=== PATIENT | female | born 1960 | race Caucasian/White ===

== ENCOUNTER → 2016-06-04 | Outpatient (CLI) | payer BC ==
--- NOTE | 2016-06-05 10:11 | MM ---
Reason for exam: screening (asymptomatic). Last mammogram was performed 1 year ago. History: Patient is postmenopausal and had first child at age 29. Family history of breast cancer in maternal aunt at age 70. Benign right US cyst aspiration of the right breast, October 05, 2009. Benign excisional biopsy of the right breast, 2006. Physical Findings: A clinical breast exam by your physician is recommended on an annual basis and results should be correlated with mammographic findings. MG Screening Mammo w CAD Bilateral CC and MLO view(s) were taken. Prior study comparison: May 30, 2015, right breast MG work up mamm w CAD RT. May 22, 2015, bilateral MG screening mammo w CAD. The breast tissue is extremely dense which could obscure a lesion on mammography. Previous mammotome biopsy in the right breast. No significant changes when compared with prior studies. ASSESSMENT: Benign, BI-RAD 2 RECOMMENDATION: Routine screening mammogram of both breasts in 1 year.
== END | disposition home or self-care (01) ==
LOC: RADMAMWWP 11:37
PROVIDERS: ATTEND Internal Medicine
DX: Z12.31 Encounter for screening mammogram for malignant neoplasm of breast (principal)

== ENCOUNTER 2016-11-23 10:08 | Emergency (ER) | payer BC ==
[2016-11-23 10:24] VITALS: BP 128/75; PULSE 70; RESP 16; TEMP 98
--- NOTE | 2016-11-23 10:46 | ED ---
General Adult HPI - General Chief complaint: Skin/Abscess/Foreign Body Stated complaint: bug bite Time Seen by Provider: 11/23/16 10:35 Source: patient, family, RN notes reviewed Mode of arrival: ambulatory Limitations: no limitations - History of Present Illness Initial comments: Patient is a pleasant 56-year-old female presenting to the emergency Department with right hand paresthesias. Patient did have a great there yesterday. Patient was unclear what it was. Patient states swelling was worse yesterday however paresthesias started today. No weakness or difficulty with movement or pain with movement. Patient only has minimal discomfort and not true pain. No history of similar symptoms previously. Patient was seen at urgent care yesterday and did receive an injection for steroid. Patient also received Benadryl. Patient also received prescription for steroid however has not had that filled yet. Patient states she is going to have that filled. - Related Data Allergies Allergy/AdvReac Type Severity Reaction Status Date / Time No Known Allergies Allergy Verified 11/23/16 10:24 Review of Systems ROS Statement: Those systems with pertinent positive or pertinent negative responses have been documented in the HPI. ROS Other: All systems not noted in ROS Statement are negative. Constitutional: Denies: fever Eyes: Denies: eye pain ENT: Denies: ear pain Respiratory: Denies: cough Cardiovascular: Denies: chest pain Endocrine: Denies: fatigue Gastrointestinal: Denies: abdominal pain Genitourinary: Denies: dysuria Musculoskeletal: Denies: back pain Skin: Denies: rash Neurological: Denies: weakness Past Medical History Past Medical History: No Reported History History of Any Multi-Drug Resistant Organisms: None Reported Past Surgical History: Cholecystectomy Additional Past Surgical History / Comment(s): rt thigh cyst removal Past Psychological History: No Psychological Hx Reported Smoking Status: Never smoker Past Alcohol Use History: Occasional Past Drug Use History: None Reported General Exam Limitations: no limitations General appearance: alert, in no apparent distress Head exam: Present: atraumatic Eye exam: Present: normal appearance, PERRL ENT exam: Present: normal oropharynx Neck exam: Present: normal inspection Respiratory exam: Present: normal lung sounds bilaterally Cardiovascular Exam: Present: regular rate, normal rhythm Extremities exam: Present: other (Right hand with mild swelling. No erythema. No tenderness. Full range of motion. Sensation is intact. Cap refill less than 2 seconds.) Neurological exam: Present: alert. Absent: motor sensory deficit Psychiatric exam: Present: normal affect, normal mood Skin exam: Absent: rash Course Vital Signs 11/23/16 10:19 Temperature 98.0 F Pulse Rate 70 Respiratory 16 Rate Blood Pressure 128/75 O2 Sat by Pulse 99 Oximetry Medical Decision Making - Medical Decision Making Patient states she is going to have her prescription filled at this time. Patient is advised that she may take Nydia or Claritin if Benadryl makes her too drowsy and should do so for the next 5 days. It is felt that paresthesias are related to the swelling and less likely by itself. Patient is advised to return if symptoms worsen especially if there is increased pain or difficulty with movement or color change of the fingers or loss of sensation. Disposition Clinical Impression: Insect bite, Paresthesia Disposition: HOME SELF-CARE Condition: Stable Instructions: Insect Bite or Sting (ED), Paresthesia (ED) Additional Instructions: Please follow-up with primary care physician beginning of the week. Return for increased swelling, increase tingling, loss of sensation, pain, difficulty moving fingers, color change of the fingers, worsening symptoms or other concerns. Take Nydia or Claritin or Benadryl as directed for the next 5 days. Please have prescription for steroids filled and started this morning. Referrals: Karlos Brooks MD [Primary Care Provider] - 1-2 days Time of Disposition: 10:45
== END 2016-11-23 10:53 | disposition home or self-care (01) ==
LOC: EC 10:08
DX: S60.561A Insect bite (nonvenomous) of right hand, initial encounter (principal); W57.XXXA Bitten or stung by nonvenomous insect and other nonvenomous arthropods, initial encounter
CPT/HCPCS: 99282

== ENCOUNTER → 2017-06-08 | Outpatient (CLI) | payer BC ==
[2017-06-08 09:08] LABS: Basophils # (A) 0.1 k/uL (0-0.2); Basophils % (A) 1 %; Eosinophils # (A) 0.1 k/uL (0-0.7); Eosinophils % (A) 3 %; HCT 40.5 % (34.0-46.0); HGB 13.3 gm/dL (11.4-16.0); Lymphocytes # (A) 1.2 k/uL (1.0-4.8); Lymphocytes % (A) 28 %; MCH 30.5 pg (25.0-35.0); MCHC 32.9 g/dL (31.0-37.0); MCV 92.6 fL (80.0-100.0); Monocytes # (A) 0.2 k/uL (0-1.0); Monocytes % (A) 5 %; Neutrophils # (A) 2.6 k/uL (1.3-7.7); Neutrophils % (A) 60 %; Platelet Count 216 k/uL (150-450); RBC 4.38 m/uL (3.80-5.40); RDW 12.5 % (11.5-15.5); WBC 4.4 k/uL (3.8-10.6)
[2017-06-08 09:20] LABS: ALT 36 U/L (9-52); AST 45 U/L (14-36); Albumin 4.6 g/dL (3.5-5.0); Alkaline Phosphatase 71 U/L (38-126); Anion Gap 9 mmol/L; Blood Urea Nitrogen 15 mg/dL (7-17); Calcium 9.9 mg/dL (8.4-10.2); Carbon Dioxide 33 mmol/L (22-30); Chloride 101 mmol/L (98-107); Cholesterol 208 mg/dL (<200); Glucose 94 mg/dL (74-99); HDL Cholesterol 69 mg/dL (40-60); LDL Cholesterol,Calculated 124 mg/dL (0-99); Potassium 4.5 mmol/L (3.5-5.1); Sodium 143 mmol/L (137-145); Total Bilirubin 0.9 mg/dL (0.2-1.3); Total Protein 7.6 g/dL (6.3-8.2); Triglycerides 76 mg/dL (<150)
--- NOTE | 2017-06-09 08:18 | MM ---
Reason for exam: screening (asymptomatic). Last mammogram was performed 1 year ago. History: Patient is postmenopausal and had first child at age 29. Family history of breast cancer in maternal aunt at age 70. Benign right US cyst aspiration of the right breast, October 05, 2009. Benign excisional biopsy of the right breast, 2006. Physical Findings: A clinical breast exam by your physician is recommended on an annual basis and results should be correlated with mammographic findings. MG Screening Mammo w CAD Bilateral CC and MLO view(s) were taken. Prior study comparison: June 04, 2016, bilateral MG screening mammo w CAD. May 30, 2015, right breast MG work up mamm w CAD RT. The breast tissue is extremely dense which could obscure a lesion on mammography. Finding: There are typically benign round calcifications in both breasts. Previous mammotome biopsy in the right breast. There is no discrete abnormality. ASSESSMENT: Benign, BI-RAD 2 RECOMMENDATION: Routine screening mammogram of both breasts in 1 year.
== END | disposition home or self-care (01) ==
LOC: RADMAMWWP 08:25
PROVIDERS: ATTEND Internal Medicine
DX: Z12.31 Encounter for screening mammogram for malignant neoplasm of breast (principal); I10 Essential (primary) hypertension; E78.2 Mixed hyperlipidemia; E03.9 Hypothyroidism, unspecified
CPT/HCPCS: 36415; 77067; 80053; 80061; 84443; 85025

== ENCOUNTER → 2022-04-16 | Outpatient (CLI) | payer OTHER ==
--- NOTE | 2022-04-17 08:55 | MM ---
Reason for Exam: Screening (asymptomatic). Last mammogram was performed 4 year(s) and 11 month(s) ago. Patient History: Menarche at age 12. First Full-Term at age 29. Late child-bearing (after 28). Postmenopausal. 2006, Benign Excisional Biopsy on the right side. 10/05/2009, Benign Cyst Aspiration on the right side. Maternal aunt had breast cancer, age 70. Risk Values: Melania 5 year model risk: 2.3%. NCI Lifetime model risk: 9.8%. Prior Study Comparison: 06/14/2013 Bilateral Screening Mammogram, [facility]. 05/22/2015 Bilateral Screening Mammogram, [facility]. 05/30/2015 Right Diagnostic Mammogram, [facility]. 06/04/2016 Bilateral Screening Mammogram, [facility]. 06/08/2017 Bilateral Screening Mammogram, [facility]. Tissue Density: The breast tissue is extremely dense which could obscure a lesion on mammography. Findings: Analyzed By CAD. There is no suspicious group of microcalcifications or new suspicious mass in either breast. Overall Assessment: Benign, BI-RAD 2 Management: Screening Mammogram of both breasts in 1 year. A clinical breast exam by your physician is recommended on an annual basis and results should be correlated with mammographic findings. Electronically signed and approved by: Corona Hernandez M.D. Radiologis
== END | disposition home or self-care (01) ==
LOC: RADMAMWWP 07:55
PROVIDERS: ATTEND Family Medicine
DX: Z12.31 Encounter for screening mammogram for malignant neoplasm of breast (principal); Z80.3 Family history of malignant neoplasm of breast; Z78.0 Asymptomatic menopausal state; Z98.890 Other specified postprocedural states
CPT/HCPCS: 77063; 77067

== ENCOUNTER 2023-11-25 07:15 | Day surgery (SDC) | payer MEDICARE, BC ==
[2023-11-19 09:16] VITALS: BMI 22.9
[~2023-11-25 07:15] MED LIST: ACETAMINOPHEN TAB 500 MG TAB PO PRN; HEPARIN SODIUM,PORCINE 5,000 UNIT/ML 1 ML VIAL SQ PRN; MIDAZOLAM 2 MG/2 ML VIAL IV PRN; Pre Op ABX Message 1 EACH MISC MISCELLANE ONE; fentaNYL (PF) 50 MCG/ML 2 ML AMP IVP PRN
[2023-11-25] MEDS: IV FLUID CONTINUATION 1,000 ML IV ONE ×2 (07:54→10:02)
[2023-11-25] MEDS: LACTATED RINGERS 1,000 ML IV SCH (08:07)
[2023-11-25] MEDS: DEXAMETHASONE SOD PHOSPHATE 4 MG/ML 1 ML VIAL IV ONE (08:07)
[2023-11-25] MEDS: LIDOCAINE 1% (10MG/ML) FOR IV START INTRADERMA PRN (08:07)
[2023-11-25] MEDS: ONDANSETRON 4 MG/2 ML VIAL IVP ONE (08:07)
[2023-11-25] MEDS ORDERED: MIDAZOLAM 2 MG/2 ML VIAL ONE (08:15)
[2023-11-25] MEDS ORDERED: LIDOCAINE 1% INJ 10MG/ML (20 ML MDV) ONE (08:15)
[2023-11-25] MEDS ORDERED: fentaNYL (PF) 50 MCG/ML 2 ML AMP ONE (08:15)
[2023-11-25] MEDS ORDERED: ceFAZolin 1 GM/50 ML BAG (PMX) ONE (08:15)
[2023-11-25] MEDS ORDERED: PROPOFOL 10 MG/ML 20 ML VIAL IV ONE (08:15)
[2023-11-25] MEDS: LIDOCAINE 1%-EPI 1:100,000 20 ML VIAL SQ ONE ×2 (08:34)
[2023-11-25] MEDS: SODIUM CHLORIDE 0.9% 50 ML with ceFAZolin 2,000 MG IV ONE (08:38)
--- NOTE | 2023-11-25 08:59 | P.OP ---
Date of Procedure: 11/25/23 Preoperative Diagnosis: Right thigh lipoma Postoperative Diagnosis: Right s thigh e lipoma Procedure(s) Performed: Excision of right thigh lipoma Anesthesia: WADE Surgeon: Shoaib Vazquez Estimated Blood Loss (ml): 5 Pathology: other (Right thigh lipoma) Condition: stable Disposition: PACU Description of Procedure: Patient was placed on the operative table in the supine position. She received general endotracheal anesthesia. Her right thigh had been marked in the preoperative holding area. The right thigh was prepped and draped in sterile fashion. The skin was sized to the previous scar. Then using blunt sharp dissection and cautery the right thigh lipoma was dissected free. It measured approximately 5 x 4 x 2 cm. There was better hemostasis. There is no bleeding seen. The skin was then closed with interrupted 3-0 Monocryl suture. Dermabond dressings applied. Patient Toller procedure well. She was sent to recovery room in stable condition.
[2023-11-25 09:02] VITALS: TEMP 96.9
[2023-11-25] MEDS: HYDROmorphone 0.5 MG/0.5 ML SYRINGE IVP PRN (09:43)
[2023-11-25 10:22] VITALS: BP 129/60; PULSE 60; RESP 18
== END 2023-11-25 10:32 | disposition home or self-care (01) ==
LOC: OR 07:15
PROVIDERS: ATTEND Surgery
DX: F41.9 Anxiety disorder, unspecified (principal); F32.A Depression, unspecified; Z79.899 Other long term (current) drug therapy
CPT/HCPCS: 11406; J2250; J1100; J2405; J0690 ×2; J2001; J3010; J2704; J1170

== ENCOUNTER → 2024-06-08 | Outpatient (CLI) | payer BC, MEDICARE ==
--- NOTE | 2024-06-08 10:14 | MM ---
Reason for Exam: Screening (asymptomatic). Last mammogram was performed 2 year(s) and 1 month(s) ago. Patient History: Menarche at age 12. First Full-Term at age 29. Late child-bearing (after 30). Postmenopausal. 2006, Benign Excisional Biopsy on the right side. 10/05/2009, Benign Cyst Aspiration on the right side. Maternal aunt had breast cancer, age 70. Risk Values: Melania 5 year model risk: 2.5%. NCI Lifetime model risk: 9.2%. Prior Study Comparison: 06/04/2016 Bilateral Screening Mammogram, [facility]. 06/08/2017 Bilateral Screening Mammogram, [facility]. 04/16/2022 Bilateral MG 3D screening mammo w/cad, [facility]. Tissue Density: The breasts are extremely dense, which lowers the sensitivity of mammography. Findings: Analyzed By CAD. Right breast biopsy clip. Right breast: There is no suspicious group of microcalcifications or new suspicious mass. Left breast: There is no suspicious group of microcalcifications or new suspicious mass. Overall Assessment: Negative, BI-RAD 1 Management: Screening Mammogram of both breasts in [address] [facility] will attempt to contact patient to return for supplemental views and ultrasound if indicated. Patient should continue monthly self-breast exams. A clinical breast exam by your physician is recommended on an annual basis. This exam should not preclude additional follow-up of suspicious palpable abnormalities. Note on Melania scores and lifetime risk: 1. A Melania score greater than 3% is considered moderate risk. If this is the case, consider specialist referral to assess eligibility for a risk reducing agent. 2. If overall lifetime risk for the development of breast cancer is 20% or higher, the patient may qualify for future screening with alternating mammogram and breast MRI. [facility], , 06/08/2024 9:02 AM. Electronically signed and approved by: Nico Roach DO
--- NOTE | 2024-06-08 11:38 | BD ---
EXAMINATION TYPE: Axial Bone Density DATE OF EXAM: 06/08/2024 CLINICAL HISTORY: 63 years old Female. ICD-10 CODE: Z13.820 Screening osteoporosis , Additional Hist ory: Height: 64 in Weight: 137 lbs FRAX RISK QUESTIONS: Family History (Parent hip fracture): yes father EXAM MEASUREMENTS: Bone mineral densitometry was performed using the [employer] System. Bone mineral density as measured about the Lumbar spine is: ----- L1-L4(G/cm2): 1.053 T Score Values are as follows: ----- L1: -1.6 ----- L2: -1.0 ----- L3: -0.9 ----- L4: -1.0 ----- L1-L4: -1.1 Z Score Values are as follows: ----- L1: 0.1 ----- L2: 0.7 ----- L3: 0.8 ----- L4: 0.7 ----- L1-L4: 0.6 Bone mineral density has: Decreased -11.4% since study of: 05/23/2010 Bone mineral density about the R hip (g/cm2): 0.899 Bone mineral density about the L hip (g/cm2): 0.872 T Score values are as follows: -----R Neck: -1.4 -----L Neck: -1.9 -----R Total: -0.9 -----L Total: -1.1 Z Score values are as follows: -----R Neck: -1.4 -----L Neck: -1.9 -----R Total: -0.9 -----L Total: -1.1 Bone mineral density has: Decreased -17.0% since study of: 05/23/2010 FRAX%s: The graph provided illustrates a 18.7% chance for a major osteoporotic fx and a 1.8% chance f or the hips probability for fx in 10 years time. IMPRESSION: Osteopenia (T Score between -2.5 and -1). There is slightly increased risk of fracture and the patient may be considered for treatment. Re-Screen 2-5 years. NOTE: T-SCORE=SD OF THE YOUNG ADULT MEAN. [facility], , 06/08/2024 11:36 AM
== END | disposition home or self-care (01) ==
LOC: RADBDWWP 08:07
PROVIDERS: ATTEND Family Medicine
DX: Z12.31 Encounter for screening mammogram for malignant neoplasm of breast (principal); Z13.820 Encounter for screening for osteoporosis; R92.343 Mammographic extreme density, bilateral breasts; M85.89 Other specified disorders of bone density and structure, multiple sites; Z78.0 Asymptomatic menopausal state; Z80.3 Family history of malignant neoplasm of breast
CPT/HCPCS: 77063; 77067; 77080